=== PATIENT | female | born 1965 | race Caucasian/White ===

== ENCOUNTER 2016-12-25 09:59 | Emergency (ER) | payer MEDICARE ==
[2016-12-25 11:42] LABS: HEMOGLOBIN 16.2 gm/dl (12.3-15.3); WHITE BLOOD COUNT 6.2 K/UL (4.5-11.0)
[2016-12-25 12:07] LABS: BUN/CREATININE RATIO 10 (0-10)
== END 2016-12-25 14:00 | disposition home or self-care (01) ==
LOC: ER1 09:59
PROVIDERS: Specialist/Technologist Athletic Trainer
DX: L02.512 Cutaneous abscess of left hand (principal); F17.200 Nicotine dependence, unspecified, uncomplicated; I10 Essential (primary) hypertension; Z90.49 Acquired absence of other specified parts of digestive tract; Z79.899 Other long term (current) drug therapy; Z88.0 Allergy status to penicillin
CPT/HCPCS: 36415; 73130; 80053; 85025; 99283

== ENCOUNTER 2017-01-11 17:33 | Emergency (ER) | payer MEDICARE | END 2017-01-11 20:45 | disposition left against medical advice (07) | LOC: ER1 17:33 | DX: G89.29 Other chronic pain (principal); M79.672 Pain in left foot; M79.671 Pain in right foot; I10 Essential (primary) hypertension; I48.91 Unspecified atrial fibrillation; F17.210 Nicotine dependence, cigarettes, uncomplicated | CPT/HCPCS: 36415; 81001; 87077; 87086; 87186; 93005; 99283 ==